=== PATIENT | female | born 1940 | race Hispanic/Latino ===

== ENCOUNTER 2017-10-13 22:45 | Inpatient (IN) | payer MEDICARE ==
[2017-10-13 23:59] LABS: INR 0.94 (0.87-1.13)
--- NOTE | 2017-10-14 | Emergency Department Report ---
ED Syncope HPI - General Chief Complaint: Syncope Stated Complaint: SYNCOPAL EPISODE Time Seen by Provider: 10/13/17 23:14 Source: patient Exam Limitations: no limitations - History of Present Illness Initial Comments: 77-year-old female with a past medical history of breast cancer in remission 15 years, CAD with 2 stents placed 15 years ago, and hypertension presents to the hospital complaints of altered level falls and lightheaded episodes this week. Today patient went to stand up and felt her knees buckle and ended up on the floor. She denies LOC. Patient states that she had a fall yesterday while walking down a driveway and does not understand how it she fell. Patient also had an episode yesterday while driving into her driveway when she could not figure out how to complete simple tasks such as taking off her seat belt or opening the garage door. This lasted for several minutes. No focal weakness, numbness, or slurred speech reported. Patient has been traveling back and forth from [place] but denies calf tenderness or edema. Patient has had a couple episodes of shortness of breath while lying supine sleeping described as a smothering feeling but denies chest pain. Master Carpenter: Dr. Lockhart - Related Data Allergies/Adverse Reactions: Allergies halcinonide Allergy (Verified 10/14/17 00:11) Anaphylaxis ED Review of Systems ROS: Stated complaint: SYNCOPAL EPISODE Other details as noted in HPI Comment: All other systems reviewed and negative Other: Constitutional: No fevers chills Eyes: No eye pain visual changes ENT: No ear pain or throat pain Neck: Denies pain Respiratory: as per hpi Cardiovascular: Denies chest pain, palpitations GI: Denies abdominal pain, nausea, vomiting, diarrhea : Denies dysuria Musculoskeletal: Injury to first and second toe status post fall Skin: Denies rash, lesions, erythema Neurologic: Denies headache, numbness, weakness Psychiatric: Denies suicidal ideation, hallucinations ED Past Medical Hx - Past Medical History Previous Medical History?: Yes Hx Hypertension: Yes Hx Heart Attack/AMI: Yes (stents placed after stress test) Hx of Cancer: Yes (breast) - Surgical History Hx Appendectomy: Yes - Social History Smoking Status: Current Some Day Smoker Substance Use Type: None ED Physical Exam - General Limitations: No Limitations - Other Other exam information: General: No limitations, patient is alert in no acute distress Head exam: Atraumatic, normocephalic Eyes exam: Normal appearance, pupils equal reactive to light, extraocular movements intact, no nystagmus ENT: Moist mucous membrane, normal oropharynx Neck exam: Normal inspection, full range of motion, no meningismus nontender Respiratory exam: Clear to auscultation bilateral, no wheezes, rales, crackles Cardiovascular: Normal rate and rhythm, normal heart sounds Abdomen: Soft, nondistended, and nontender, with normal bowel sounds, no rebound, or guarding Extremity: Full range of motion, abrasion to right great toe with mild redness Back: Normal Inspection, full range of motion, no tenderness Neurologic: Alert, oriented x3, cranial nerves intact, no motor or sensory deficit, [id number] function intact Psychiatric: normal affect, normal mood Skin: Warm, dry, intact ED Course Vital Signs 10/13/17 10/13/17 10/13/17 23:06 23:15 23:20 Temperature 97.8 F Pulse Rate 81 81 78 Pulse Rate [ Lying] Respiratory 10 L 13 18 Rate Blood Pressure 177/95 196/99 Blood Pressure [Lying] O2 Sat by Pulse 98 95 Oximetry 10/13/17 10/13/17 10/13/17 23:26 23:30 23:45 Temperature Pulse Rate 78 77 74 Pulse Rate [ Lying] Respiratory 18 18 17 Rate Blood Pressure 171/79 188/89 Blood Pressure [Lying] O2 Sat by Pulse 98 96 Oximetry 10/14/17 10/14/17 10/14/17 00:00 00:07 01:15 Temperature Pulse Rate 78 Pulse Rate [ 74 Lying] Respiratory 20 Rate Blood Pressure 149/99 177/91 Blood Pressure 192/91 [Lying] O2 Sat by Pulse 96 94 Oximetry ED Medical Decision Making - Lab Data Result diagrams: 10/13/17 23:32 10/13/17 23:32 Lab Results 10/13/17 10/13/17 10/13/17 Range/Units 23:32 23:32 23:32 WBC 9.3 (4.5-11.0) K/mm3 RBC 4.78 (3.65-5.03) M/mm3 Hgb 14.9 H (10.1-14.3) gm/dl Hct 44.5 H (30.3-42.9) % MCV 93 (79-97) fl MCH 31 (28-32) pg MCHC 33 (30-34) % RDW 13.2 (13.2-15.2) % Plt Count 240 (140-440) K/mm3 Lymph % (Auto) 35.1 H (13.4-35.0) % [place] % (Auto) 8.6 H (0.0-7.3) % Eos % (Auto) 0.9 (0.0-4.3) % Baso % (Auto) 0.5 (0.0-1.8) % Lymph # 3.3 (1.2-5.4) K/mm3 [place] # 0.8 (0.0-0.8) K/mm3 Eos # 0.1 (0.0-0.4) K/mm3 Baso # 0.0 (0.0-0.1) K/mm3 Seg Neutrophils % 54.9 (40.0-70.0) % Seg Neutrophils # 5.1 (1.8-7.7) K/mm3 PT 13.0 (12.2-14.9) Sec. INR 0.94 (0.87-1.13) D-Dimer (0-234) ng/mlDDU Sodium 140 (137-145) mmol/L Potassium 3.8 (3.6-5.0) mmol/L Chloride 101.8 (98-107) mmol/L Carbon Dioxide 25 (22-30) mmol/L Anion Gap 17 mmol/L BUN 20 H (7-17) mg/dL Creatinine 0.5 L (0.7-1.2) mg/dL Estimated GFR > 60 ml/min BUN/Creatinine Ratio 40 % Glucose 100 (65-100) mg/dL Calcium 8.9 (8.4-10.2) mg/dL Total Creatine Kinase 164 H (30-135) units/L CK-MB (CK-2) 6.7 H (0.0-4.0) ng/mL CK-MB (CK-2) Rel Index 4.0 (0-4) Troponin T < 0.010 (0.00-0.029) ng/mL NT-Pro-B Natriuret Pep (0-900) pg/mL Urine Color (Yellow) Urine Turbidity (Clear) Urine pH (5.0-7.0) Ur Specific [place] (1.003-1.030) Urine Protein (Negative) mg/dL Urine Glucose (UA) (Negative) mg/dL Urine Ketones (Negative) mg/dL Urine Blood (Negative) Urine Nitrite (Negative) Urine Bilirubin (Negative) Urine Urobilinogen (<2.0) mg/dL Ur Leukocyte Esterase (Negative) Urine WBC (Auto) (0.0-6.0) /HPF Urine RBC (Auto) (0.0-6.0) /HPF U Epithel Cells (Auto) (0-13.0) /HPF 10/13/17 10/13/17 10/14/17 Range/Units 23:32 23:32 00:27 WBC (4.5-11.0) K/mm3 RBC (3.65-5.03) M/mm3 Hgb (10.1-14.3) gm/dl Hct (30.3-42.9) % MCV (79-97) fl MCH (28-32) pg MCHC (30-34) % RDW (13.2-15.2) % Plt Count (140-440) K/mm3 Lymph % (Auto) (13.4-35.0) % [place] % (Auto) (0.0-7.3) % Eos % (Auto) (0.0-4.3) % Baso % (Auto) (0.0-1.8) % Lymph # (1.2-5.4) K/mm3 [place] # (0.0-0.8) K/mm3 Eos # (0.0-0.4) K/mm3 Baso # (0.0-0.1) K/mm3 Seg Neutrophils % (40.0-70.0) % Seg Neutrophils # (1.8-7.7) K/mm3 PT (12.2-14.9) Sec. INR (0.87-1.13) D-Dimer 228.28 (0-234) ng/mlDDU Sodium (137-145) mmol/L Potassium (3.6-5.0) mmol/L Chloride (98-107) mmol/L Carbon Dioxide (22-30) mmol/L Anion Gap mmol/L BUN (7-17) mg/dL Creatinine (0.7-1.2) mg/dL Estimated GFR ml/min BUN/Creatinine Ratio % Glucose (65-100) mg/dL Calcium (8.4-10.2) mg/dL Total Creatine Kinase (30-135) units/L CK-MB (CK-2) (0.0-4.0) ng/mL CK-MB (CK-2) Rel Index (0-4) Troponin T (0.00-0.029) ng/mL NT-Pro-B Natriuret Pep 348.1 (0-900) pg/mL Urine Color Straw (Yellow) Urine Turbidity Clear (Clear) Urine pH 7.0 (5.0-7.0) Ur Specific [place] 1.005 (1.003-1.030) Urine Protein <15 mg/dl (Negative) mg/dL Urine Glucose (UA) Neg (Negative) mg/dL Urine Ketones Neg (Negative) mg/dL Urine Blood Sm (Negative) Urine Nitrite Neg (Negative) Urine Bilirubin Neg (Negative) Urine Urobilinogen < 2.0 (<2.0) mg/dL Ur Leukocyte Esterase Tr (Negative) Urine WBC (Auto) 1.0 (0.0-6.0) /HPF Urine RBC (Auto) 1.0 (0.0-6.0) /HPF U Epithel Cells (Auto) < 1.0 (0-13.0) /HPF - Radiology Data Radiology results: report reviewed ct head: Prior lacunar infarcts in the bilateral basal ganglia. Additional superimposed probable chronic small vessel ischemic disease. - Medical Decision Making Patient has remained hypertensive during ED stay he denies a past medical history of hypertension. Also PVCs noted on the monitor. Magnesium added to blood work and pending at disposition. Plan to admit patient to the hospital further workup. Unclear based on history of patient is having syncope, near syncope, mechanical falls, or lack of coordination as a source of her falls. Plan to admit patient for further workup. - Differential Diagnosis pe, mi, unstable angina, orthostasis, infection, fall, cva, infection Critical Care Time: No Critical care attestation.: If time is entered above; I have spent that time in minutes in the direct care of this critically ill patient, excluding procedure time. ED Disposition Clinical Impression: Near syncope, Transient confusion, HTN (hypertension), PVCs (premature ventricular contractions), Hx of heart artery stent, HX: breast cancer Disposition: OP ADMIT IP TO THIS HOSP Is pt being admited?: Yes Condition: Stable Time of Disposition: 01:43 (Dr Selby/Hosp)
[2017-10-14 00:02] LABS: Basophils % (Auto) 0.5 % (0.0-1.8); Eosinophils # (Auto) 0.1 K/mm3 (0.0-0.4); Eosinophils % (Auto) 0.9 % (0.0-4.3); Hematocrit 44.5 % (30.3-42.9); Hemoglobin 14.9 gm/dl (10.1-14.3); Lymphocytes # (Auto) 3.3 K/mm3 (1.2-5.4); Lymphocytes % (Auto) 35.1 % (13.4-35.0); Mean Corpuscular HGB Conc 33 % (30-34); Mean Corpuscular Hemoglobin 31 pg (28-32); Mean Corpuscular Volume 93 fl (79-97); Monocytes # (Auto) 0.8 K/mm3 (0.0-0.8); Monocytes % (Auto) 8.6 % (0.0-7.3); Platelet Count 240 K/mm3 (140-440); Red Blood Count 4.78 M/mm3 (3.65-5.03); Red Cell Distribution Width 13.2 % (13.2-15.2)
[2017-10-14 00:12] LABS: Creatine Kinase MB 6.7 ng/mL (0.0-4.0)
[2017-10-14 00:13] LABS: BUN/Creatinine Ratio 40; Blood Urea Nitrogen 20 mg/dL (7-17); Calcium 8.9 mg/dL (8.4-10.2); Hemolysis Index 29
[2017-10-14 00:38] LABS: Bilirubin,Urine NEG (Negative); Blood,Urine SM (Negative); Color,Urine Straw (Yellow); Nitrite,Urine NEG (Negative); Protein,Urine <15 mg/dL mg/dL (Negative); Urobilinogen,Urine < 2.0 mg/dL (<2.0)
--- NOTE | 2017-10-14 01:26 | Cat Scan Report ---
FINAL REPORT EXAM: CT HEAD/BRAIN W/O CONTRAST. HISTORY: Frequent falls vs near syncope. TECHNIQUE: Unenhanced axial CT images of the brain were obtained. No prior studies are available for comparison. FINDINGS: There is mild diffuse generalized volume loss, appropriate for patient's age. There are prior lacunar infarctions in the regions of the bilateral lentiform nuclei. There are patchy foci of abnormal low attenuation in the periventricular and subcortical white matter, and also scattered within both basal ganglia. These are nonspecific but most likely due to chronic small vessel ischemic disease. The olmstead-white differentiation is maintained. There is no extra-axial fluid collection, mass, mass effect, midline shift, hydrocephalus, or acute intracranial hemorrhage. If there is clinical suspicion for acute infarction, MRI examination is recommended. The visualized paranasal sinuses and mastoid air cells are clear. There is no skull fracture or other osseous abnormality. There are sequela of bilateral cataract surgeries. IMPRESSION: 1. No acute intracranial abnormality. 2. Prior lacunar infarctions in the bilateral basal ganglia. Additional superimposed probable chronic small vessel ischemic disease.
--- NOTE | 2017-10-14 02:23 | History and Physical Report ---
History of Present Illness Date of examination: 10/14/17 History of present illness: 77 -year-old woman with a history of hypertension, coronary artery disease, breast cancer, emergency room with complaints of frequent fall over the last 1 week. She is falling 3 times, there was no loss of consciousness. She states she was trying to get out of her car, she also had transient confusion, she couldn't get her seatbelt off. Symptoms lasted for a few seconds. Patient is caring for her sister who had a stroke, she is anxious that she does not want to get a stroke Review Of Systems: Constitutional: no weight loss Ears, eyes, nose, mouth and throat: no nasal congestion, no nasal discharge, no sinus pressure, blurry vision, diplopia Neck: No neck pain or rigidity. Cardiovascular: No chest pain, palpitations Respiratory: No shortness of breath, cough Gastrointestinal: No abdominal pain, hematochezia Genitourinary : no dysuria, frequency , hematuria Musculoskeletal: no muscle ache Integumentary: no rash, no pruritis Neurological: no parathesias, focal weakness Endocrine: no cold or heat intolerance, no polyuria or polydipsia Hematologic/Lymphatic: no easy bruising, no easy bleeding, no gland swelling Allergic/Immunologic: no urticaria, no angioedema. PAST MEDICAL HISTORY:hypertension, coronary artery disease, breast cancer PAST SURGICAL HISTORY: Appendicectomy FAMILY HISTORY: Hypertension SOCIAL HISTORY: denies alcohol, tobacco, drugs Medications and Allergies Allergies Allergy/AdvReac Type Severity Reaction Status Date / Time halcinonide Allergy Anaphylaxis Verified 10/14/17 00:11 Home Medications Medication Instructions Recorded Confirmed Last Taken Type No Known Home Medications [No 10/14/17 10/14/17 Unknown History Reported Home Medications] Exam - Physical Exam Narrative exam: Gen. appearance: Patient lying in bed in no acute distress HEENT: Normocephalic/atraumatic, pupils equal round reactive to light, extra occular movement intact, no scleral icterus, no JVD or thyromegaly or nodule, neck is supple, mucous membrane moist, no erythema or exudate Heart: S1-S2, regular rate and rhythm Lungs: Clear to auscultation bilateral breathing comfortable Abdomen: Positive bowel sounds, nontender, nondistended, no organomegaly Extremities: No edema, cyanosis, clubbing Neuro:: Oriented 3 , cranial nerves II-12 intact, speech, motor intact Skin: No rash, nodules, warm dry - Constitutional Vitals: Temp Pulse Resp BP Pulse Ox 97.8 F 74 20 177/91 94 10/13/17 23:20 10/14/17 00:07 10/14/17 00:00 10/14/17 01:15 10/14/17 01:15 Results - Labs CBC & Chem 7: 10/13/17 23:32 10/13/17 23:32 Labs: Abnormal lab results 10/13/17 10/13/17 Range/Units 23:32 23:32 Hgb 14.9 H (10.1-14.3) gm/dl Hct 44.5 H (30.3-42.9) % Lymph % (Auto) 35.1 H (13.4-35.0) % [place] % (Auto) 8.6 H (0.0-7.3) % BUN 20 H (7-17) mg/dL Creatinine 0.5 L (0.7-1.2) mg/dL Total Creatine Kinase 164 H (30-135) units/L CK-MB (CK-2) 6.7 H (0.0-4.0) ng/mL - Imaging and Cardiology EKG: image reviewed Chest x-ray: image reviewed CT Scan - head: report reviewed Assessment and Plan Assessment Near-syncope Hypertension Coronary artery disease History of breast cancer Plan Admit to medicine Check cardiac enzymes, carotid Doppler, echo, orthostatics Continue appropriate outpatient medications DVT prophylaxis
[2017-10-14] MEDS ORDERED: MILK OF MAGNESIA PO PRN (02:24)
[2017-10-14] MEDS ORDERED: DULCOLAX PR PRN (02:24)
[2017-10-14] MEDS ORDERED: ZOFRAN IV PRN (02:24)
[2017-10-14] MEDS ORDERED: TYLENOL PO PRN (02:24)
[2017-10-14 03:04] LABS: Creatine Kinase MB 6.5 ng/mL (0.0-4.0)
[2017-10-14 09:12] LABS: Creatine Kinase MB 5.7 ng/mL (0.0-4.0)
--- NOTE | 2017-10-14 09:13 | XRay Report ---
Single view chest: History: Near syncope, shortness of breath. Findings: Cardiomegaly. Trachea is midline. Mild pulmonary venous congestion. No consolidation or pleural effusion. Impression: Probable early CHF.
[2017-10-14] MEDS: LOVENOX SUB-Q SCH (10:23)
--- NOTE | 2017-10-14 15:07 | Magnetic Resonance Report ---
FINAL REPORT EXAM: MR BRAIN WO CON HISTORY: stroke TECHNIQUE: MRI of the brain without IV contrast. PRIORS: None currently available. FINDINGS: Small focal area of ischemia noted within the left posterior frontal convexity on series 4:29-30. Another area noted within the left posterior frontal lobe on image 26. More prominent area noted within the left frontal lobe near the periventricular right matter on image 22. There may be a small area restricted diffusion noted within the left frontal lobe on series 4:26. No other areas of restricted diffusion. T2/FLAIR hyperintensities in the periventricular and subcortical white matter are nonspecific. Differential diagnosis includes migraines, microvascular ischemic disease, demyelinating process, encephalitis/encephalopathy, and trauma. Tiny chronic lacunar type infarcts also noted. Midline structures are unremarkable. Well-defined cystic lesions or areas within the right and left inferior basal ganglia suggest parenchymal cysts or prominent perivascular spaces. There is no tonsillar ectopy. Age appropriate olmstead-white matter differentiation is noted. There is no hydrocephalus. There is no mass. There is no hemorrhage. There is no midline shift. The CP angles are grossly noted. Mild right anterior ethmoid sinus disease. Globes are intact. Calvarial signal characteristics are grossly unremarkable. Extracranial soft tissues are intact. IMPRESSION: Embolic infarcts noted within the left frontal lobe. Distribution is suspicious for the left ESTER territory. Chronic microvascular ischemic disease. Probable bilateral parenchymal cyst or prominent perivascular spaces at the inferior right and left basal ganglias. October 14, 2017 at 1202 PST: I discussed findings over the phone with JAYLEN Bojorquez.
--- NOTE | 2017-10-14 15:10 | Magnetic Resonance Report ---
FINAL REPORT EXAM: MR MRA/MRV HEAD WO CON HISTORY: stroke TECHNIQUE: MRA of the Head without IV contrast. PRIORS: None currently available. FINDINGS: HEAD: Series 3:96 demonstrates a loss of signal in the left A2 segment which may represent a focal thrombus or emboli. There is flow signal distal to the lesion in the left ESTER. Flow is present within the right ESTER. Slight irregularity along the right and left M1 segments may represent mild disease. No filling defects or signal defects noted along both M1 or M2 segments. Mild disease also noted at the carotid siphons. Posterior circulation appears intact. IMPRESSION: Focal loss of signal at the left A2 segment may represent a thrombus or emboli.
--- NOTE | 2017-10-14 15:28 | Progress Note ---
Assessment and Plan Assessment and plan: Patient is 77 yo woman with a h/o breast cancer, hypertension, coronary artery disease with remote cardiac stents who takes no medication except herbals who presents with frequent falls. Recently her alternative medicine provider told her she had an old stroke. pCXR reported as probable early CHF proBNP normal CTH no acute finding, prior lacunar infarct MRI brain reported as Embolic infarct note within the left frontal lobe. Distribution is suspicious for the left ESTER territory, chronic microvascular ischemic disease, probable bilateral parenchymal cyst or prominent perivascular spaces at the inferior right and left basal ganglia -Acute ischemic stroke: Echo, carotid pending, consult Neurology -Right foot ulcer: wound care -Accelerated hypertension: permissive with parameters. History Interval history: Patient was seen and examined. Follow-up on current diagnosis. Overnight uneventful. Patient denies any chest pain, shortness breath, nausea/vomiting or severe headaches. Imaging, nursing note, chart, labs and old chart reviewed. Discussed with patient. Hospitalist Physical - Physical exam Narrative exam: GEN: WDWN, NAD, AWAKE, ALERT, ORIENTATED x 3 HEENT: NCAT, EOMI, PERRL, OP Clear NECK: supple, no adenopathy, no thyromegaly, no JVD CVS/HEART: RRR, NORMAL S1S2, NO JVD, pulses present bilaterally CHEST/LUNGS: CTA B, Symmetrical chest expansion, good air entry bilaterally GI/Abdomen: soft, NTND, good bowel sounds, no guarding or rebound /Bladder: no suprapubic tenderness, no CVA or paraspinal tenderness EXT/Skin: no c/c/e, no obvious rash MSK: FROM x 4, good msk strength bilateral Neuro: CN 2-12 grossly intact, +rhomberg Psych: calm - Constitutional Vitals: Temp Pulse Resp BP Pulse Ox 98.6 F 79 18 177/96 97 10/14/17 08:13 10/14/17 08:13 10/14/17 08:13 10/14/17 10:36 10/14/17 08:13 Results - Labs CBC & Chem 7: 10/13/17 23:32 10/13/17 23:32 Labs: Laboratory Last Values WBC 9.3 K/mm3 (4.5-11.0) 10/13/17 23:32 RBC 4.78 M/mm3 (3.65-5.03) 10/13/17 23:32 Hgb 14.9 gm/dl (10.1-14.3) H 10/13/17 23:32 Hct 44.5 % (30.3-42.9) H 10/13/17 23:32 MCV 93 fl (79-97) 10/13/17 23:32 MCH 31 pg (28-32) 10/13/17 23: MCHC 33 % (30-34) 10/13/17 23: RDW 13.2 % (13.2-15.2) 10/13/17 23:32 Plt Count 240 K/mm3 (140-440) 10/13/17 23:32 Lymph % (Auto) 35.1 % (13.4-35.0) H 10/13/17 23:32 [place] % (Auto) 8.6 % (0.0-7.3) H 10/13/17 23:32 Eos % (Auto) 0.9 % (0.0-4.3) 10/13/17: Baso % (Auto) 0.5 % (0.0-1.8) 10/13/17 23: Lymph # 3.3 K/mm3 (1.2-5.4) 10/13/17 23: [place] # 0.8 K/mm3 (0.0-0.8) 10/13/17 23: Eos # 0.1 K/mm3 (0.0-0.4) 10/13/17 23: Baso # 0.0 K/mm3 (0.0-0.1) 10/13/17 23: Seg Neutrophils % 54.9 % (40.0-70.0) 10/13/17 23: Seg Neutrophils # 5.1 K/mm3 (1.8-7.7) 10/13/17 23: PT 13.0 Sec. (12.2-14.9) 10/13/17 23:32 INR 0.94 (0.87-1.13) 10/13/17 23:32 D-Dimer 228.28 ng/mlDDU (0-234) 10/13/17 23:32 Sodium 140 mmol/L (137-145) 10/13/17 23:32 Potassium 3.8 mmol/L (3.6-5.0) 10/13/17 23:32 Chloride 101.8 mmol/L (98-107) 10/13/17 23:32 Carbon Dioxide 25 mmol/L (22-30) 10/13/17 23:32 Anion Gap 17 mmol/L 10/13/17 23:32 BUN 20 mg/dL (7-17) H 10/13/17 23:32 Creatinine 0.5 mg/dL (0.7-1.2) L 10/13/17 23:32 Estimated GFR > 60 ml/min 10/13/17 23:32 BUN/Creatinine Ratio 40 % 10/13/17 23:32 Glucose 100 mg/dL (65-100) 10/13/17 23:32 Calcium 8.9 mg/dL (8.4-10.2) 10/13/17 23:32 Magnesium 2.30 mg/dL (1.7-2.3) 10/14/17 01:30 Total Creatine Kinase 127 units/L (30-135) 10/14/17 08:25 CK-MB (CK-2) 5.7 ng/mL (0.0-4.0) H 10/14/17 08:25 CK-MB (CK-2) Rel Index 4.4 (0-4) H 10/14/17 08:25 Troponin T < 0.010 ng/mL (0.00-0.029) 10/14/17 08:25 NT-Pro-B Natriuret Pep 348.1 pg/mL (0-900) 10/13/17 23:32 Urine Color Straw (Yellow) 10/14/17 00:27 Urine Turbidity Clear (Clear) 10/14/17 00:27 Urine pH 7.0 (5.0-7.0) 10/14/17 00:27 Ur Specific [place] 1.005 (1.003-1.030) 10/14/17 00:27 Urine Protein <15 mg/dl mg/dL (Negative) 10/14/17 00:27 Urine Glucose (UA) Neg mg/dL (Negative) 10/14/17 00:27 Urine Ketones Neg mg/dL (Negative) 10/14/17 00:27 Urine Blood Sm (Negative) 10/14/17 00:27 Urine Nitrite Neg (Negative) 10/14/17 00:27 Urine Bilirubin Neg (Negative) 10/14/17 00:27 Urine Urobilinogen < 2.0 mg/dL (<2.0) 10/14/17 00:27 Ur Leukocyte Esterase Tr (Negative) 10/14/17 00:27 Urine WBC (Auto) 1.0 /HPF (0.0-6.0) 10/14/17 00:27 Urine RBC (Auto) 1.0 /HPF (0.0-6.0) 10/14/17 00:27 U Epithel Cells (Auto) < 1.0 /HPF (0-13.0) 10/14/17 00:27
[2017-10-15 06:23] LABS: Basophils % (Auto) 0.6 % (0.0-1.8); Eosinophils # (Auto) 0.2 K/mm3 (0.0-0.4); Eosinophils % (Auto) 2.4 % (0.0-4.3); Hemoglobin 16.4 gm/dl (10.1-14.3); Lymphocytes # (Auto) 2.4 K/mm3 (1.2-5.4); Lymphocytes % (Auto) 33.7 % (13.4-35.0); Mean Corpuscular HGB Conc 34 % (30-34); Mean Corpuscular Hemoglobin 32 pg (28-32); Mean Corpuscular Volume 94 fl (79-97); Monocytes # (Auto) 0.6 K/mm3 (0.0-0.8); Monocytes % (Auto) 8.9 % (0.0-7.3); Platelet Count 241 K/mm3 (140-440); Red Blood Count 5.13 M/mm3 (3.65-5.03)
[2017-10-15 06:35] LABS: BUN/Creatinine Ratio 33; Blood Urea Nitrogen 13 mg/dL (7-17); Calcium 8.8 mg/dL (8.4-10.2); Hemolysis Index 14
[2017-10-15] MEDS: LOVENOX SUB-Q SCH (09:39)
--- NOTE | 2017-10-15 11:56 | Consultation ---
History of Present Illness Consult date: 10/15/17 History of present illness: Thanks for consult interesting case as she had occlusion of the left anterior cerebral artery then the vessel became patent agian which is well seen on the MRA now there is severe stenosis of the left ESTER prior hx of HTN and atherosclerosis was not on statin !! advised low dose aspirin, perhaps a substitute for plavix will be needed, HTN control showed the daughter and patient the MRI/MRA results off computer screen the acute stroke is very small !! Thanks will follow up neuro exam a present is normal Medications and Allergies Allergies Allergy/AdvReac Type Severity Reaction Status Date / Time halcinonide Allergy Anaphylaxis Verified 10/14/17 00:11 Home Medications Medication Instructions Recorded Confirmed Last Taken Type No Known Home Medications [No 10/14/17 10/14/17 Unknown History Reported Home Medications] Active Meds: Active Medications Acetaminophen (Tylenol) 650 mg PO Q4H PRN PRN Reason: Pain MILD(1-3)/Fever >100.5/MARQUEZ Aspirin (Aspirin) 325 mg PO QDAY CÉSAR Bisacodyl (Dulcolax) 10 mg SD QDAY PRN PRN Reason: Constipation unrelieved by MOM Enoxaparin Sodium (Lovenox) 40 mg SUB-Q QDAY CÉSAR Last Admin: 10/15/17 09:39 Dose: 40 mg Magnesium Hydroxide (Milk Of Magnesia) 30 ml PO Q4H PRN PRN Reason: Constipation Ondansetron HCl (Zofran) 4 mg IV Q8H PRN PRN Reason: N/V unrelieved by Reglan Physical Examination - Vital Signs Vital Signs: Vital Signs Pulse Resp 81 10 L 10/13/17 23:06 10/13/17 23:06 Results - Laboratory Findings CBC and BMP: 10/15/17 05:11 10/15/17 05:11 Abnormal Lab Findings: Abnormal Labs 10/13/17 10/13/17 10/14/17 23:32 23:32 02:17 RBC Hgb 14.9 H Hct 44.5 H RDW Lymph % (Auto) 35.1 H [place] % (Auto) 8.6 H BUN 20 H Creatinine 0.5 L Glucose Total Creatine Kinase 164 H 151 H CK-MB (CK-2) 6.7 H 6.5 H CK-MB (CK-2) Rel Index 4.3 H 1210/15/17 10/15/17 08:25 05:11 05:11 RBC 5.13 H Hgb 16.4 H Hct 48.0 H RDW 13.0 L Lymph % (Auto) [place] % (Auto) 8.9 H BUN Creatinine 0.4 L Glucose 131 H Total Creatine Kinase CK-MB (CK-2) 5.7 H CK-MB (CK-2) Rel Index 4.4 H
[2017-10-15] MEDS: ASPIRIN PO SCH (12:53)
[2017-10-15] MEDS ORDERED: SODIUM CHLORIDE FLUSH SYRINGE 10 ML IV PRN (13:34)
--- NOTE | 2017-10-15 13:36 | Progress Note ---
Assessment and Plan Assessment and plan: Patient is 77 yo woman with a h/o breast cancer, hypertension, coronary artery disease with remote cardiac stents who takes no medication except herbals who presents with frequent falls. Recently her alternative medicine provider told her she had an old stroke. pCXR reported as probable early CHF proBNP normal CTH no acute finding, prior lacunar infarct MRI brain reported as Embolic infarct note within the left frontal lobe. Distribution is suspicious for the left ESTER territory, chronic microvascular ischemic disease, probable bilateral parenchymal cyst or prominent perivascular spaces at the inferior right and left basal ganglia -Acute ischemic stroke, poa, stroke ordered done: Echo, carotid doppler negative , consulted Neurology, patient REFUSES any statin due to prior adverse unspecific reaction. Ok to start Aspirin. Risk discussed. -Right foot ulcer: wound care -Accelerated hypertension: permissive with parameters. Echo still pending start Aspirin Patient refuses statin. add Remote tele History Interval history: Patient was seen and examined. Follow-up on current diagnosis. Overnight uneventful. Patient denies any chest pain, shortness breath, nausea/vomiting or severe headaches. Imaging, nursing note, chart, labs and old chart reviewed. Discussed with patient. Hospitalist Physical - Physical exam Narrative exam: GEN: WDWN, NAD, AWAKE, ALERT, ORIENTATED x 3 HEENT: NCAT, EOMI, PERRL, OP Clear NECK: supple, no adenopathy, no thyromegaly, no JVD CVS/HEART: RRR, NORMAL S1S2, NO JVD, pulses present bilaterally CHEST/LUNGS: CTA B, Symmetrical chest expansion, good air entry bilaterally GI/Abdomen: soft, NTND, good bowel sounds, no guarding or rebound /Bladder: no suprapubic tenderness, no CVA or paraspinal tenderness EXT/Skin: no c/c/e, no obvious rash MSK: FROM x 4, good msk strength bilateral Neuro: CN 2-12 grossly intact, +rhomberg Psych: calm - Constitutional Vitals: Temp Pulse Resp BP Pulse Ox 97.8 F 80 20 157/88 95 10/15/17 07:20 10/15/17 07:20 10/15/17 07:20 10/15/17 07:21 10/15/17 09:14 Results - Labs CBC & Chem 7: 10/15/17 05:11 10/15/17 05:11 Labs: Laboratory Last Values WBC 7.0 K/mm3 (4.5-11.0) 10/15/17 05:11 RBC 5.13 M/mm3 (3.65-5.03) H 10/15/17 05:11 Hgb 16.4 gm/dl (10.1-14.3) H 10/15/17 05:11 Hct 48.0 % (30.3-42.9) H 10/15/17 05:11 MCV 94 fl (79-97) 10/15/17 05:11 MCH 32 pg (28-32) 10/15/17 05:11 MCHC 34 % (30-34) 10/15/17 05:11 RDW 13.0 % (13.2-15.2) L 10/15/17 05:11 Plt Count 241 K/mm3 (140-440) 10/15/17 05:11 Lymph % (Auto) 33.7 % (13.4-35.0) 10/15/17 05:11 Davis % (Auto) 8.9 % (0.0-7.3) H 10/15/17 05:11 Eos % (Auto) 2.4 % (0.0-4.3) 10/15/17 05:11 Baso % (Auto) 0.6 % (0.0-1.8) 10/15/17 05:11 Lymph # 2.4 K/mm3 (1.2-5.4) 10/15/17 05:11 Davis # 0.6 K/mm3 (0.0-0.8) 10/15/17 05:11 Eos # 0.2 K/mm3 (0.0-0.4) 10/15/17 05:11 Baso # 0.0 K/mm3 (0.0-0.1) 10/15/17 05:11 Seg Neutrophils % 54.4 % (40.0-70.0) 10/15/17 05:11 Seg Neutrophils # 3.8 K/mm3 (1.8-7.7) 10/15/17 05:11 PT 13.0 Sec. (12.2-14.9) 10/13/17 23:32 INR 0.94 (0.87-1.13) 10/13/17 23:32 D-Dimer 228.28 ng/mlDDU (0-234) 10/13/17 23:32 Sodium 141 mmol/L (137-145) 10/15/17 05:11 Potassium 4.0 mmol/L (3.6-5.0) 10/15/17 05:11 Chloride 101.5 mmol/L (98-107) 10/15/17 05:11 Carbon Dioxide 24 mmol/L (22-30) 10/15/17 05:11 Anion Gap 20 mmol/L 10/15/17 05:11 BUN 13 mg/dL (7-17) 10/15/17 05:11 Creatinine 0.4 mg/dL (0.7-1.2) L 10/15/17 05:11 Estimated GFR > 60 ml/min 10/15/17 05:11 BUN/Creatinine Ratio 33 % 10/15/17 05:11 Glucose 131 mg/dL (65-100) H 10/15/17 05:11 Calcium 8.8 mg/dL (8.4-10.2) 10/15/17 05:11 Magnesium 2.30 mg/dL (1.7-2.3) 10/14/17 01:30 Total Creatine Kinase 127 units/L (30-135) 10/14/17 08:25 CK-MB (CK-2) 5.7 ng/mL (0.0-4.0) H 10/14/17 08:25 CK-MB (CK-2) Rel Index 4.4 (0-4) H 10/14/17 08:25 Troponin T < 0.010 ng/mL (0.00-0.029) 10/14/17 08:25 NT-Pro-B Natriuret Pep 348.1 pg/mL (0-900) 10/13/17 23:32 Urine Color Straw (Yellow) 10/14/17 00:27 Urine Turbidity Clear (Clear) 10/14/17 00:27 Urine pH 7.0 (5.0-7.0) 10/14/17 00:27 Ur Specific [place] 1.005 (1.003-1.030) 10/14/17 00:27 Urine Protein <15 mg/dl mg/dL (Negative) 10/14/17 00:27 Urine Glucose (UA) Neg mg/dL (Negative) 10/14/17 00:27 Urine Ketones Neg mg/dL (Negative) 10/14/17 00: Urine Blood Sm (Negative) 10/14/17 00: Urine Nitrite Neg (Negative) 10/14/17: Urine Bilirubin Neg (Negative) 10/14/17 00: Urine Urobilinogen < 2.0 mg/dL (<2.0) 10/14/17 00: Ur Leukocyte Esterase Tr (Negative) 10/14/17 00: Urine WBC (Auto) 1.0 /HPF (0.0-6.0) 10/14/17 00: Urine RBC (Auto) 1.0 /HPF (0.0-6.0) 10/14/17 00: U Epithel Cells (Auto) < 1.0 /HPF (0-13.0) 10/14/17 00:27
[2017-10-16 09:56] VITALS: BP 138/96
[2017-10-16] MEDS: ASPIRIN PO SCH (09:57)
[2017-10-16] MEDS: LOVENOX SUB-Q SCH (09:57)
--- NOTE | 2017-10-16 14:12 | Discharge Summary ---
Providers - Providers Date of Admission: 10/14/17 02:23 Date of discharge: 10/16/17 Attending physician: BRITTNEE VERNON 10/15/17 13:34 Consult to Case Management [CONS] Routine Services Needed at Discharge: Traffic Incident Management Manager Notified:: ss Occupational Therapy Evaluate and Treat [CONS] Routine Comment: Reason For Exam: Neuro deficits Physical Therapy Evaluation and Treat [CONS] Routine Comment: Reason For Exam: Neuro deficits 10/14/17 15:28 Consult to Physician [CONS] Routine Consulting Provider: KURT NEWSOME Reason For Exam: ?Embolic stroke Place consult to:: Dr. Newsome Notified:: answering service Phone number called:: [phone] Was contact made?: Yes If yes, spoke with:: dr. newsome Time called:: 16:30 Comment:: none Primary care physician: COLIN NAIDU Hospitalization Condition: Stable Hospital course: Patient is 77 yo woman with a h/o breast cancer, hypertension, coronary artery disease with remote cardiac stents who takes no medication except herbals who presents with frequent falls. Recently her alternative medicine provider told her she had an old stroke. pCXR reported as probable early CHF proBNP normal CTH no acute finding, prior lacunar infarct MRI brain reported as Embolic infarct note within the left frontal lobe. Distribution is suspicious for the left ESTER territory, chronic microvascular ischemic disease, probable bilateral parenchymal cyst or prominent perivascular spaces at the inferior right and left basal ganglia -Acute ischemic stroke, poa, stroke ordered done: Echo, carotid doppler negative , consulted Neurology, patient REFUSES any statin due to prior unspecific adverse reaction. Ok to start Aspirin. Risk discussed. I also told her she could not drive. -Right foot ulcer: wound care -Accelerated hypertension: permissive with parameters. -Hypertensive heart disease with LVH and diastolic dysfunction: she refuses to accept and treat with traditions medications Echo reviewed, she really needs to treat the hypertension, Extensive counseling done. start Aspirin Patient refuses statin, lipid panel (she is following this with her pcp), plavix. She will only take asa 325mg/day, slow release naicin, omega 3, cod liver added Remote tele==>no events reported to me Disposition: TO HOME OR SELFCARE Time spent for discharge: 37 minutes Core Measure Documentation - Palliative Care Palliative Care/ Comfort Measures: Not Applicable - Core Measures Any of the following diagnoses?: stroke - VTE Discharge Requirements Deep Vein Thrombosis/Pulmonary Embolism Present on Admission: No Has pt received <5 days of overlap therapy or INR<2.0: No Anticoagulant overlap therapy prescribed at discharge: No Contraindication No Overlap Therapy order at DC: Not Indicated - Stroke Discharge Requirements Statin for LDL = or >70 mg/dl on DC: No Reason for no statin on DC: Patient Refusal Anticoag for atrial fib/atrial flutter: Not Applicable Reason for no anticoag for AF/F on DC: Not Indicated Antithrombotic for ischemic stroke: Yes Exam - Physical Exam Narrative exam: GEN: WDWN, NAD, AWAKE, ALERT, ORIENTATED x 3 HEENT: NCAT, EOMI, PERRL, OP Clear NECK: supple, no adenopathy, no thyromegaly, no JVD CVS/HEART: RRR, NORMAL S1S2, NO JVD, pulses present bilaterally CHEST/LUNGS: CTA B, Symmetrical chest expansion, good air entry bilaterally GI/Abdomen: soft, NTND, good bowel sounds, no guarding or rebound /Bladder: no suprapubic tenderness, no CVA or paraspinal tenderness EXT/Skin: no c/c/e, no obvious rash MSK: FROM x 4, good msk strength bilateral Neuro: CN 2-12 grossly intact, +rhomberg Psych: calm - Constitutional Vitals: Temp Pulse Resp BP Pulse Ox 98.0 F 81 20 138/96 99 10/16/17 09:47 10/16/17 09:47 10/16/17 09:47 10/16/17 09:50 10/16/17 09:47 Plan Activity: no driving until cleared by PCP, other (no strenous activity until cleared by pcp) Diet: low salt Special Instructions: record daily BP diary Additional Instructions: Please see your primary care provider as soon as possible Follow up with: COLIN NAIDU MD [Primary Care Provider] - 7 Days
--- NOTE | 2017-10-19 17:49 | Vascular Lab Report ---
CAROTID DUPLEX STUDY: RIGHT PSVEDV CCA [id number] CCA DIST:[id number] ICA PROX:[id number] ICA MID:7827 ICA DIST:[id number] ECA: 135 VERT: 40 8 LEFT PSVEDV CCA PROX:[id number] CCA DIST:7819 ICA PROX:[id number] ICA MID:7824 ICA DIST:4621 ECA: 95 VERT: 40 15 REASON FOR EXAM: Near syncope. COMMENTS ON THE RIGHT: Doppler frequency analysis is consistent with 16 to 49 percent diameter reduction of the internal carotid artery. Mild amount of plaque is seen in the right carotid bulb. The common carotid artery is patent. The external carotid artery is patent. The vertebral artery has antegrade flow. COMMENTS ON THE LEFT: Doppler frequency analysis is consistent with 16 to 49 percent diameter reduction of the internal carotid artery. Minimal amount of plaque is seen. The common carotid artery is patent. The external carotid artery is patent. The vertebral artery has antegrade flow. IMPRESSION: Less than 50% diameter reduction in the internal carotid arteries bilaterally.
== END 2017-10-16 16:40 | disposition home or self-care (01) | DRG 65 ==
LOC: ED 22:45 → 3A 10-14 02:23
PROVIDERS: ADMIT Internal Medicine; ATTEND Internal Medicine
DX: I63.9 Cerebral infarction, unspecified (principal); I50.30 Unspecified diastolic (congestive) heart failure; L98.499 Non-pressure chronic ulcer of skin of other sites with unspecified severity; I25.10 Atherosclerotic heart disease of native coronary artery without angina pectoris; I11.0 Hypertensive heart disease with heart failure; F17.200 Nicotine dependence, unspecified, uncomplicated; I49.3 Ventricular premature depolarization; Z71.89 Other specified counseling; I25.2 Old myocardial infarction; Z85.3 Personal history of malignant neoplasm of breast; Z95.5 Presence of coronary angioplasty implant and graft; Z82.49 Family history of ischemic heart disease and other diseases of the circulatory system; Z90.49 Acquired absence of other specified parts of digestive tract
CPT/HCPCS: 36415; 70450; 70544; 70551; 71010; 80048; 81001; 82550; 82553; 83735; 83880; 84484; 85025; 85379; 85610; 93005; 93010; 93306; 93880; J1650